=== PATIENT | male | born 1980 | race Two or more races ===

== ENCOUNTER 2019-09-10 02:04 | Emergency (ER) | payer MEDICAID, OTHER ==
[~2019-09-10] VITALS: Ht 160 cm; Wt 70.9 kg
[~2019-09-10 02:04] MED LIST: AMOX-291 PO; CLAR-36 PO; NICO-485 TD; PANT40TA5 PO
[2019-09-10 02:07] VITALS: BP 104/66
[2019-09-10] MEDS ORDERED: MORPHINE SULFATE 4 MG/ML, 1ML ONE (02:27)
[2019-09-10] MEDS ORDERED: MAALOX/HYOSCYAMINE/LIDOCAINE 45 ML BTL ONE (02:28)
[2019-09-10] MEDS ORDERED: ONDANSETRON 2MG/ML, 2ML ONE (02:28)
[2019-09-10] MEDS ORDERED: ONDANSETRON 2MG/ML, 2ML IVPush ONE (02:30)
[2019-09-10] MEDS ORDERED: SODIUM CHLORIDE FLUSH 10ML SYR IVF ONE (02:30)
[2019-09-10] MEDS ORDERED: MORPHINE SULFATE 4 MG/ML, 1ML IVPush PRN (02:30)
[2019-09-10] MEDS ORDERED: MAALOX/HYOSCYAMINE/LIDOCAINE 45 ML BTL PO ONE (02:30)
[2019-09-10 02:47] LABS: BASOPHILS # (AUTO) 0.04 x10^3/uL (0-0.1); BASOPHILS % (AUTO) 0 % (0-1); EOSINOPHILS # (AUTO) 0.19 x10^3/uL (0-0.4); EOSINOPHILS % (AUTO) 2 % (1-7); LYMPHOCYTES # (AUTO) 1.73 x10^3/uL (1-3.4); LYMPHOCYTES % (AUTO) 17 % (22-44); MD NO; MEAN CORPUSCULAR HEMOGLOBIN 30.1 pg (27.5-34.5); MEAN CORPUSCULAR HGB CONC 32.7 g/dL (33.2-36.2); MEAN CORPUSCULAR VOLUME 92.2 fL (81-97); MEAN PLATELET VOLUME 7.6 fL (7.4-10.4); MONOCYTES # (AUTO) 0.62 x10^3/uL (0.2-0.8); MONOCYTES % (AUTO) 6 % (2-9); NEUTROPHILS # (AUTO) 7.52 x10^3/uL (1.8-6.8); NEUTROPHILS % (AUTO) 74 % (42-75); PLATELET COUNT 344 x10^3/uL (130-400); RED CELL DISTRIBUTION WIDTH 17.9 % (9.4-14.8)
[2019-09-10 02:55] LABS: ALANINE AMINOTRANSFERASE 36 U/L (12-78); ALBUMIN 3.2 g/dL (3.4-5.0); ANION GAP 8 mmol/L (5-15); CALCIUM 8.7 mg/dL (8.5-10.1); CHLORIDE 106 mmol/L (98-107)
[2019-09-10 02:57] LABS: ALKALINE PHOSPHATASE 71 U/L (45-117); BILIRUBIN,TOTAL 0.2 mg/dL (0.2-1.0); TOTAL PROTEIN 7.1 g/dL (6.4-8.2)
--- NOTE | 2019-09-10 03:18 | NUR ---
PT STATES THAT PAIN HAS IMPROVED
== END 2019-09-10 05:08 | disposition home or self-care (01) ==
LOC: ED 03:20
DX: K29.00 Acute gastritis without bleeding (principal); K21.9 Gastro-esophageal reflux disease without esophagitis; F17.200 Nicotine dependence, unspecified, uncomplicated; Z72.89 Other problems related to lifestyle
CPT/HCPCS: 36415; 76700; 80053; 83690; 85025; 93005; 96374; 96375; 99284; J2270; J2405

== ENCOUNTER 2019-09-16 18:44 | Emergency (ER) | payer SELFPAY ==
[~2019-09-16] VITALS: Ht 160 cm; Wt 68.0 kg
[2019-09-16] MEDS ORDERED: FAMOTIDINE 20 MG/2 ML IV ONE (19:30)
[2019-09-16] MEDS ORDERED: SODIUM CHLORIDE FLUSH 10ML SYR IVF ONE (19:30)
[2019-09-16] MEDS ORDERED: SODIUM CHLORIDE 0.9% 1,000ML IVBOLUS ONE (19:30)
[2019-09-16] MEDS ORDERED: MAALOX/HYOSCYAMINE/LIDOCAINE 45 ML BTL PO ONE (19:30)
[2019-09-16] MEDS ORDERED: ONDANSETRON 2MG/ML, 2ML IVPush ONE (19:30)
[2019-09-16 19:39] LABS: BASOPHILS # (AUTO) 0.01 x10^3/uL (0-0.1); BASOPHILS % (AUTO) 0 % (0-1); EOSINOPHILS # (AUTO) 0.21 x10^3/uL (0-0.4); EOSINOPHILS % (AUTO) 2 % (1-7); LYMPHOCYTES # (AUTO) 1.94 x10^3/uL (1-3.4); LYMPHOCYTES % (AUTO) 15 % (22-44); MD NO; MEAN CORPUSCULAR HGB CONC 32.6 g/dL (33.2-36.2); MEAN CORPUSCULAR VOLUME 92.2 fL (81-97); MEAN PLATELET VOLUME 7.4 fL (7.4-10.4); MONOCYTES # (AUTO) 0.76 x10^3/uL (0.2-0.8); MONOCYTES % (AUTO) 6 % (2-9); NEUTROPHILS # (AUTO) 9.85 x10^3/uL (1.8-6.8); NEUTROPHILS % (AUTO) 77 % (42-75); PLATELET COUNT 440 x10^3/uL (130-400); RED CELL DISTRIBUTION WIDTH 18.4 % (9.4-14.8)
[2019-09-16] MEDS ORDERED: MAALOX/HYOSCYAMINE/LIDOCAINE 45 ML BTL ONE (19:44)
[2019-09-16] MEDS ORDERED: ONDANSETRON 2MG/ML, 2ML ONE (19:44)
[2019-09-16] MEDS ORDERED: FAMOTIDINE 20 MG/2 ML ONE (19:44)
[2019-09-16 19:46] LABS: ALANINE AMINOTRANSFERASE 31 U/L (12-78); ALBUMIN 3.3 g/dL (3.4-5.0); ANION GAP 9 mmol/L (5-15); CALCIUM 8.5 mg/dL (8.5-10.1); CHLORIDE 106 mmol/L (98-107); CREATININE 0.91 mg/dL (0.7-1.3)
[2019-09-16 19:48] LABS: ALKALINE PHOSPHATASE 79 U/L (45-117); BILIRUBIN,TOTAL 0.5 mg/dL (0.2-1.0); TOTAL PROTEIN 7.2 g/dL (6.4-8.2)
--- NOTE | 2019-09-16 20:48 | NUR ---
Patient came to ER c/o epigastric burning and vomiting since yesterday. Patient's friend states he was admitted for similar symptoms recently and after he was discharged, he did not get his RX filled. Unknown what the RX was for.
--- NOTE | 2019-09-16 21:50 | NUR ---
Pt states not able to provide ua at this time and would not like a straight cath.
[2019-09-16] MEDS ORDERED: OMNIPAQUE 350 MG/ML, 100ML BOTTLE ONE (22:39)
[2019-09-16 23:12] VITALS: BP 124/76
== END 2019-09-16 23:17 | disposition home or self-care (01) ==
LOC: ED 23:00
DX: R10.13 Epigastric pain (principal); R11.2 Nausea with vomiting, unspecified; F17.200 Nicotine dependence, unspecified, uncomplicated
CPT/HCPCS: 36415; 74177; 80053; 83690; 85025; 96361; 96374; 96375; 99284; J2405; J3490; J7030; Q9967

== ENCOUNTER 2019-10-03 18:51 | Inpatient (IN) | payer MEDICAID, OTHER ==
[~2019-10-03] VITALS: Ht 160 cm; Wt 70.2 kg
[2019-10-03] MEDS ORDERED: OMNIPAQUE 350 MG/ML, 100ML BOTTLE ONE (20:18)
[2019-10-03] MEDS ORDERED: PANTOPRAZOLE 80 MG in SODIUM CHLORIDE 0.9% 50 ML IVPB ONE (20:18)
[2019-10-03 20:27] LABS: BASOPHILS # (AUTO) 0.03 x10^3/uL (0-0.1); BASOPHILS % (AUTO) 0 % (0-1); EOSINOPHILS # (AUTO) 0.08 x10^3/uL (0-0.4); EOSINOPHILS % (AUTO) 1 % (1-7); LYMPHOCYTES # (AUTO) 1.79 x10^3/uL (1-3.4); LYMPHOCYTES % (AUTO) 14 % (22-44); MD NO; MEAN CORPUSCULAR HEMOGLOBIN 29.5 pg (27.5-34.5); MEAN CORPUSCULAR HGB CONC 32.9 g/dL (33.2-36.2); MEAN CORPUSCULAR VOLUME 89.9 fL (81-97); MEAN PLATELET VOLUME 7.3 fL (7.4-10.4); MONOCYTES # (AUTO) 0.82 x10^3/uL (0.2-0.8); MONOCYTES % (AUTO) 7 % (2-9); NEUTROPHILS # (AUTO) 9.91 x10^3/uL (1.8-6.8); NEUTROPHILS % (AUTO) 79 % (42-75); PLATELET COUNT 440 x10^3/uL (130-400); RED BLOOD COUNT 5.39 x10^6/uL (4.38-5.82); RED CELL DISTRIBUTION WIDTH 18.1 % (9.4-14.8)
[2019-10-03] MEDS ORDERED: SODIUM CHLORIDE FLUSH 10ML SYR IVF ONE (20:30)
[2019-10-03] MEDS ORDERED: ONDANSETRON 2MG/ML, 2ML IVPush ONE (20:30)
[2019-10-03] MEDS ORDERED: SODIUM CHLORIDE 0.9% 1,000ML IVBOLUS ONE (20:30)
[2019-10-03] MEDS ORDERED: HYDROmorphone 2 MG/ML, 1ML IVPush ONE (20:30)
[2019-10-03] MEDS ORDERED: ONDANSETRON 2MG/ML, 2ML ONE (20:33)
[2019-10-03] MEDS ORDERED: HYDROmorphone 1 MG/ML, 1ML INJ ONE (20:33)
[2019-10-03 20:34] LABS: ALANINE AMINOTRANSFERASE 33 U/L (12-78); ALBUMIN 3.7 g/dL (3.4-5.0); ANION GAP 7 mmol/L (5-15); CALCIUM 9.2 mg/dL (8.5-10.1); CHLORIDE 101 mmol/L (98-107)
[2019-10-03 20:37] LABS: ALKALINE PHOSPHATASE 74 U/L (45-117); BILIRUBIN,TOTAL 0.4 mg/dL (0.2-1.0)
[2019-10-03 20:50] LABS: INTERNATIONAL NORMALIZED RATIO 0.99 (0.93-1.1); PROTHROMBIN TIME 10.4 Seconds (9.6-11.5)
--- NOTE | 2019-10-03 20:52 | NUR ---
PT MEDICATED PER [facility]. MED REQUEST SENT TO PHARMACY. PT TO CT AT THIS TIME.
[2019-10-03] MEDS ORDERED: LORazepam 2 MG/ML, 1ML ONE (21:25)
[2019-10-03] MEDS ORDERED: LIDOCAINE 2% VISCOUS 15 ML UDC ONE ×2 (21:27→22:08)
[2019-10-03] MEDS ORDERED: LORazepam 2 MG/ML, 1ML IVPush ONE (21:30)
[2019-10-03] MEDS: LACTATED RINGERS 1,000 ML IV SCH ×2 (21:30→23:53)
--- NOTE | 2019-10-03 21:31 | NUR ---
Dr. Aragon called for patient.
[2019-10-03 21:32] LABS: MICROSCOPIC INDICATED
[2019-10-03 21:39] LABS: CULTURE INDICATED? NO
[2019-10-03] MEDS: PANTOPRAZOLE 80 MG in SODIUM CHLORIDE 0.9% 100 ML IV SCH ×2 (21:53→23:18)
[2019-10-03] MEDS ORDERED: BENZOCAINE AEROSOL SPRAY 20%, 60ML ONE (22:08)
[2019-10-03 23:10] VITALS: BP 106/66
[2019-10-03] MEDS ORDERED: ONDANSETRON 2MG/ML, 2ML IVPush PRN (23:30)
[2019-10-03] MEDS ORDERED: morphine SULFATE 10 MG/ML, 1ML IVPush PRN (23:30)
[2019-10-03] MEDS ORDERED: PROMETHAZINE 25 MG/ML, 1ML IM PRN (23:30)
[2019-10-04 01:10] VITALS: BP 106/66
[2019-10-04 02:08] VITALS: BP 104/64
[2019-10-04] MEDS: LACTATED RINGERS 1,000 ML IV SCH ×4 (02:30→17:23)
[2019-10-04 05:48] LABS: ANION GAP 8 mmol/L (5-15); CALCIUM 7.7 mg/dL (8.5-10.1); CHLORIDE 106 mmol/L (98-107); CREATININE 0.96 mg/dL (0.7-1.3)
[2019-10-04 05:54] LABS: BASOPHILS # (AUTO) 0.04 x10^3/uL (0-0.1); BASOPHILS % (AUTO) 0 % (0-1); EOSINOPHILS # (AUTO) 0.31 x10^3/uL (0-0.4); EOSINOPHILS % (AUTO) 3 % (1-7); LYMPHOCYTES # (AUTO) 2.43 x10^3/uL (1-3.4); LYMPHOCYTES % (AUTO) 27 % (22-44); MD NO; MEAN CORPUSCULAR HEMOGLOBIN 29.2 pg (27.5-34.5); MEAN CORPUSCULAR HGB CONC 32.1 g/dL (33.2-36.2); MEAN PLATELET VOLUME 7.7 fL (7.4-10.4); MONOCYTES # (AUTO) 0.89 x10^3/uL (0.2-0.8); MONOCYTES % (AUTO) 10 % (2-9); NEUTROPHILS # (AUTO) 5.43 x10^3/uL (1.8-6.8); NEUTROPHILS % (AUTO) 60 % (42-75); PLATELET COUNT 366 x10^3/uL (130-400); RED BLOOD COUNT 4.61 x10^6/uL (4.38-5.82); RED CELL DISTRIBUTION WIDTH 17.8 % (9.4-14.8)
[2019-10-04 07:06] VITALS: BP 112/69
[2019-10-04] MEDS: PANTOPRAZOLE 80 MG in SODIUM CHLORIDE 0.9% 100 ML IV SCH ×3 (07:18→21:11)
[2019-10-04] MEDS ORDERED: LABETALOL 5MG/ML, 20ML IV PRN (12:00)
[2019-10-04] MEDS ORDERED: OXYcodone 5 MG/5 ML ORAL.SOL UDC PO PRN (12:00)
[2019-10-04] MEDS ORDERED: hydrALAzine 20 MG/ML, 1ML IV PRN (12:00)
[2019-10-04] MEDS ORDERED: MEPERIDINE/PF 25MG/ML,1ML IVPush PRN (12:00)
[2019-10-04] MEDS ORDERED: HYDROmorphone 2 MG/ML, 1ML IVPush PRN (12:00)
[2019-10-04] MEDS ORDERED: FENTANYL PF 100 MCG/2ML IV PRN (12:00)
[2019-10-04] MEDS ORDERED: FENTANYL PF 100 MCG/2ML ONE (12:19)
[2019-10-04] MEDS ORDERED: MIDAZOLAM 1 MG/ML, 2ML ONE (12:19)
[2019-10-04] MEDS ORDERED: PROPOFOL 10 MG/ML, 20ML ONE (13:08)
[2019-10-04] MEDS ORDERED: SUCCINYLCHOLINE 20 MG/ML, 10ML ONE (13:08)
[2019-10-04] MEDS ORDERED: DEXAMETHASONE 4 MG/ML, 1ML ONE (13:08)
[2019-10-04] MEDS ORDERED: ONDANSETRON 2MG/ML, 2ML ONE (13:09)
[2019-10-04 14:15] VITALS: BP 106/63
[2019-10-04 19:00] VITALS: BP 119/60
[2019-10-05 01:19] VITALS: BP 113/75
[2019-10-05] MEDS: PANTOPRAZOLE 80 MG in SODIUM CHLORIDE 0.9% 100 ML IV SCH ×4 (01:23→22:01)
[2019-10-05] MEDS: LACTATED RINGERS 1,000 ML IV SCH ×3 (01:26→17:23)
[2019-10-05 06:35] VITALS: BP 113/72
[2019-10-05 08:39] LABS: BASOPHILS # (AUTO) 0.02 x10^3/uL (0-0.1); BASOPHILS % (AUTO) 0 % (0-1); EOSINOPHILS # (AUTO) 0.26 x10^3/uL (0-0.4); EOSINOPHILS % (AUTO) 3 % (1-7); LYMPHOCYTES # (AUTO) 1.72 x10^3/uL (1-3.4); LYMPHOCYTES % (AUTO) 19 % (22-44); MD NO; MEAN CORPUSCULAR HGB CONC 32.5 g/dL (33.2-36.2); MEAN CORPUSCULAR VOLUME 89.4 fL (81-97); MEAN PLATELET VOLUME 7.1 fL (7.4-10.4); MONOCYTES # (AUTO) 0.82 x10^3/uL (0.2-0.8); MONOCYTES % (AUTO) 9 % (2-9); NEUTROPHILS # (AUTO) 6.37 x10^3/uL (1.8-6.8); NEUTROPHILS % (AUTO) 69 % (42-75); PLATELET COUNT 338 x10^3/uL (130-400); RED BLOOD COUNT 4.55 x10^6/uL (4.38-5.82); RED CELL DISTRIBUTION WIDTH 17.5 % (9.4-14.8)
[2019-10-05 08:51] LABS: ANION GAP 4 mmol/L (5-15); CALCIUM 7.8 mg/dL (8.5-10.1); CHLORIDE 108 mmol/L (98-107); CREATININE 0.98 mg/dL (0.7-1.3)
[2019-10-05] MEDS: CLARITHROMYCIN 500 MG TABLET PO SCH ×2 (12:28→20:52)
[2019-10-05] MEDS: AMOXICILLIN 500 MG CAPSULE PO SCH ×2 (12:28→20:52)
[2019-10-05 14:00] VITALS: BP 104/72
[2019-10-05 18:59] VITALS: BP 114/73
[2019-10-06 00:33] VITALS: BP 114/67
[2019-10-06] MEDS: LACTATED RINGERS 1,000 ML IV SCH ×3 (01:59→18:28)
[2019-10-06 05:34] LABS: BASOPHILS # (AUTO) 0.03 x10^3/uL (0-0.1); BASOPHILS % (AUTO) 0 % (0-1); EOSINOPHILS # (AUTO) 0.52 x10^3/uL (0-0.4); EOSINOPHILS % (AUTO) 6 % (1-7); LYMPHOCYTES # (AUTO) 1.61 x10^3/uL (1-3.4); LYMPHOCYTES % (AUTO) 18 % (22-44); MD NO; MEAN CORPUSCULAR HEMOGLOBIN 28.8 pg (27.5-34.5); MEAN CORPUSCULAR HGB CONC 32.4 g/dL (33.2-36.2); MEAN CORPUSCULAR VOLUME 88.9 fL (81-97); MEAN PLATELET VOLUME 7.6 fL (7.4-10.4); MONOCYTES # (AUTO) 0.71 x10^3/uL (0.2-0.8); MONOCYTES % (AUTO) 8 % (2-9); NEUTROPHILS # (AUTO) 5.89 x10^3/uL (1.8-6.8); NEUTROPHILS % (AUTO) 67 % (42-75); PLATELET COUNT 336 x10^3/uL (130-400); RED CELL DISTRIBUTION WIDTH 17.6 % (9.4-14.8)
[2019-10-06 05:41] LABS: ALBUMIN 2.7 g/dL (3.4-5.0); ANION GAP 6 mmol/L (5-15); CALCIUM 8.1 mg/dL (8.5-10.1); CHLORIDE 107 mmol/L (98-107)
[2019-10-06 05:46] LABS: ALANINE AMINOTRANSFERASE 23 U/L (12-78); ALKALINE PHOSPHATASE 66 U/L (45-117); BILIRUBIN,TOTAL 0.2 mg/dL (0.2-1.0); CREATININE 0.95 mg/dL (0.7-1.3); PREALBUMIN 18.3 mg/dL (20.0-40.0); TOTAL PROTEIN 6.2 g/dL (6.4-8.2)
[2019-10-06] MEDS ORDERED: POTASSIUM CHLORIDE 20 MEQ TAB.ER.PRT PO ONE (07:00)
[2019-10-06 07:12] VITALS: BP 116/67
[2019-10-06] MEDS: CLARITHROMYCIN 500 MG TABLET PO SCH ×2 (08:17→20:23)
[2019-10-06] MEDS: AMOXICILLIN 500 MG CAPSULE PO SCH ×2 (08:17→20:23)
[2019-10-06] MEDS: PANTOPRAZOLE 80 MG in SODIUM CHLORIDE 0.9% 100 ML IV SCH ×2 (08:19→18:27)
[2019-10-06 13:31] VITALS: BP 118/68
[2019-10-06 20:02] VITALS: BP 124/70
[2019-10-07 01:23] VITALS: BP 120/64
[2019-10-07] MEDS: LACTATED RINGERS 1,000 ML IV SCH ×3 (02:30→20:47)
[2019-10-07] MEDS: PANTOPRAZOLE 80 MG in SODIUM CHLORIDE 0.9% 100 ML IV SCH ×2 (04:45→17:19)
[2019-10-07 06:06] LABS: ANION GAP 6 mmol/L (5-15); CALCIUM 8.1 mg/dL (8.5-10.1); CHLORIDE 110 mmol/L (98-107); CREATININE 0.79 mg/dL (0.7-1.3)
[2019-10-07 06:22] LABS: BASOPHILS # (AUTO) 0.04 x10^3/uL (0-0.1); BASOPHILS % (AUTO) 1 % (0-1); EOSINOPHILS % (AUTO) 9 % (1-7); LYMPHOCYTES # (AUTO) 1.43 x10^3/uL (1-3.4); LYMPHOCYTES % (AUTO) 25 % (22-44); MD NO; MEAN CORPUSCULAR HEMOGLOBIN 28.9 pg (27.5-34.5); MEAN CORPUSCULAR HGB CONC 32.6 g/dL (33.2-36.2); MEAN CORPUSCULAR VOLUME 88.7 fL (81-97); MEAN PLATELET VOLUME 7.8 fL (7.4-10.4); MONOCYTES # (AUTO) 0.51 x10^3/uL (0.2-0.8); MONOCYTES % (AUTO) 9 % (2-9); NEUTROPHILS # (AUTO) 3.14 x10^3/uL (1.8-6.8); NEUTROPHILS % (AUTO) 56 % (42-75); PLATELET COUNT 331 x10^3/uL (130-400); RED BLOOD COUNT 4.42 x10^6/uL (4.38-5.82); RED CELL DISTRIBUTION WIDTH 17.9 % (9.4-14.8)
[2019-10-07 07:30] VITALS: BP 115/64
[2019-10-07] MEDS: CLARITHROMYCIN 500 MG TABLET PO SCH ×2 (08:33→20:47)
[2019-10-07] MEDS: AMOXICILLIN 500 MG CAPSULE PO SCH ×2 (08:33→20:45)
[2019-10-07] MEDS: SODIUM CHLORIDE NASAL SPRAY 45ML BOTTLE NAS PRN ×2 (14:13→20:55)
[2019-10-07 15:03] VITALS: BP 99/65
[2019-10-07 18:47] VITALS: BP 116/71
[2019-10-07 21:19] LABS: MICROSCOPIC NOT IND
[2019-10-07 21:23] LABS: CULTURE INDICATED? NO
[2019-10-08 02:32] VITALS: BP 110/66
[2019-10-08] MEDS: PANTOPRAZOLE 80 MG in SODIUM CHLORIDE 0.9% 100 ML IV SCH ×2 (02:32→14:55)
[2019-10-08] MEDS: LACTATED RINGERS 1,000 ML IV SCH ×3 (05:55→21:00)
[2019-10-08 07:05] LABS: BASOPHILS # (AUTO) 0.04 x10^3/uL (0-0.1); BASOPHILS % (AUTO) 1 % (0-1); EOSINOPHILS # (AUTO) 0.48 x10^3/uL (0-0.4); EOSINOPHILS % (AUTO) 8 % (1-7); LYMPHOCYTES # (AUTO) 1.25 x10^3/uL (1-3.4); LYMPHOCYTES % (AUTO) 21 % (22-44); MD NO; MEAN CORPUSCULAR HEMOGLOBIN 29.2 pg (27.5-34.5); MEAN CORPUSCULAR HGB CONC 32.9 g/dL (33.2-36.2); MEAN CORPUSCULAR VOLUME 88.9 fL (81-97); MEAN PLATELET VOLUME 7.6 fL (7.4-10.4); MONOCYTES # (AUTO) 0.76 x10^3/uL (0.2-0.8); MONOCYTES % (AUTO) 13 % (2-9); NEUTROPHILS # (AUTO) 3.29 x10^3/uL (1.8-6.8); NEUTROPHILS % (AUTO) 57 % (42-75); PLATELET COUNT 358 x10^3/uL (130-400); RED BLOOD COUNT 4.58 x10^6/uL (4.38-5.82); RED CELL DISTRIBUTION WIDTH 17.5 % (9.4-14.8)
[2019-10-08 07:10] VITALS: BP 123/76
[2019-10-08 07:20] LABS: CHLORIDE 110 mmol/L (98-107)
[2019-10-08 07:29] LABS: CREATININE 0.85 mg/dL (0.7-1.3)
[2019-10-08 07:39] LABS: ANION GAP 5 mmol/L (5-15)
[2019-10-08] MEDS: AMOXICILLIN 500 MG CAPSULE PO SCH ×2 (08:24→20:56)
[2019-10-08] MEDS: CLARITHROMYCIN 500 MG TABLET PO SCH ×2 (08:24→20:57)
[2019-10-08] MEDS: NICOTINE 7 MG/24 HR PATCH.TD24 TD SCH (14:55)
[2019-10-08 15:28] VITALS: BP 113/54
[2019-10-08 19:32] VITALS: BP 120/79
[2019-10-09 01:17] VITALS: BP 127/75
[2019-10-09] MEDS: PANTOPRAZOLE 80 MG in SODIUM CHLORIDE 0.9% 100 ML IV SCH ×2 (01:24→11:42)
[2019-10-09] MEDS: LACTATED RINGERS 1,000 ML IV SCH ×2 (05:47→13:47)
[2019-10-09] MEDS ORDERED: POTASSIUM CHLORIDE 20 MEQ TAB.ER.PRT PO SCH (08:00)
[2019-10-09] MEDS: CLARITHROMYCIN 500 MG TABLET PO SCH (08:47)
[2019-10-09] MEDS: AMOXICILLIN 500 MG CAPSULE PO SCH (08:47)
[2019-10-09 09:40] VITALS: BP 118/82
[2019-10-09] MEDS: NICOTINE 7 MG/24 HR PATCH.TD24 TD SCH (11:44)
[2019-10-09] MEDS ORDERED: PANT40TA3 PO (13:41)
[2019-10-09] MEDS ORDERED: AMOX-291 PO (13:41)
[2019-10-09] MEDS ORDERED: CLAR-36 PO (13:41)
[2019-10-09 15:45] VITALS: BP 113/75
== END 2019-10-09 18:14 | disposition home or self-care (01) | DRG 381 ==
LOC: OR 21:44 → EDIP 22:25 → 3N 23:00
PROVIDERS: ADMIT Family Medicine; ATTEND Family Medicine
PROC: 0DB68ZX Excision of Stomach, Via Natural or Artificial Opening Endoscopic, Diagnostic (ICD-10-PCS; principal; 2019-10-04 12:00)
DX: K22.11 Ulcer of esophagus with bleeding (principal); K31.1 Adult hypertrophic pyloric stenosis; K26.4 Chronic or unspecified duodenal ulcer with hemorrhage; B96.81 Helicobacter pylori [H. pylori] as the cause of diseases classified elsewhere; F12.90 Cannabis use, unspecified, uncomplicated; F17.210 Nicotine dependence, cigarettes, uncomplicated; K21.9 Gastro-esophageal reflux disease without esophagitis; K29.50 Unspecified chronic gastritis without bleeding; Z82.49 Family history of ischemic heart disease and other diseases of the circulatory system; Z91.19 Patient's noncompliance with other medical treatment and regimen; Z87.11 Personal history of peptic ulcer disease
CPT/HCPCS: 36415; 74018; 74177; 80048; 80053; 81001; 81003; 83690; 84134; 85025; 85610; 88305; 96361; 96374; 96375; G0378; J1100; J1170; J2250; J2405; J2704; J3010; Q9967; C9113; J0330; J2060; J7030; J7120